=== PATIENT | female | born 1930 | race Caucasian/White ===

== ENCOUNTER → 2016-03-22 | Outpatient (REF) | LOC: COL.CARD 15:35 | DX: Z02.89 Encounter for other administrative examinations (principal) ==

== ENCOUNTER → 2017-04-11 | Outpatient (REF) | LOC: ZLAB.WCH 19:26 | DX: Z01.89 Encounter for other specified special examinations (principal) ==

== ENCOUNTER → 2018-04-30 | Outpatient (REF) | LOC: ZLAB.WCH 19:39 | DX: Z01.89 Encounter for other specified special examinations (principal) ==